=== PATIENT | male | born 1970 | race Caucasian/White ===

== ENCOUNTER → 2016-08-09 | Outpatient (CLI) | payer BC ==
[~2016-08-09] VITALS: Ht 188 cm; Wt 110.6 kg
[~2016-08-09] MED LIST: ASPI81TA28 PO; ATOR-24 PO; MULT-506 PO; OMEG10007 PO
[2016-08-09 16:57] VITALS: BP 149/85; PULSE 90; Ht 188 cm; Wt 110.6 kg
== END | disposition home or self-care (01) ==
LOC: C.NEUR 13:44
PROVIDERS: ATTEND Internal Medicine Pulmonary Disease
DX: G47.30 Sleep apnea, unspecified (principal)

== ENCOUNTER → 2016-08-28 | Outpatient (CLI) | payer BC ==
--- NOTE | 2016-08-29 05:41 | PAP/PSG TECHNICIAN REPORT ---
[facility] Metalizing Machine Operator Polysomnogram Report Study name: None Report date: 08/29/2016 Study date: 08/28/2016 Referring Physician: DR. CONTRERAS Name: LANRE HELLER Interpreting Physician: Bijan Contreras M.D. Date of : 1970 Metalizing Machine Operator: Ravin Alegria [facility]. Sex: Male Age: 46 StudyType: PSG PAP Weight: 243 lbs 16.5 inches Height: 46 years, Height 6' 2" Neck Circum: BMI: 31.2 Medications: ASPIRIN 81 MG, ATORVASTATIN CALCIUM 40 MG, OMEGA 3 Patient History PATIENT HAD A HOME SLEEP STUDY DONE IN IN JUNE OF 2016. HE WAS POSITIVE FOR HEATHER WITH AN AHI 77.8/HR. HE IS HERE TODAY FOR A CPAP TITRATION. ESS = 18 RM 4 Parameters Monitored NPSG: E1-M2, E2-M1, Fp1-M2, Fp2-M1, F3-M2, F4-M2, F4-M1, C3-M2, C4-M2, C4-M1, O1-M2, O2-M2, O2-M1, T3-M2, T4-M1, P3-M2, P4-M1, CHIN1, CHIN2, HR, EKG, Legs, PFLOW, SNOR, FLOW, CFLOW, Tidal Volume, THOR, ABDO, SpO2, PLTH, CPRESS, ETCO2 Wave, ETCO2, pH Sleep Architecture Sleep Stages Time at Lights Off 10:32:02 PM STAGES Time (min.) TST (%) Time at Lights On 5:00:32 AM Wake 118.5 -- Total Recording Time (TRT) 389.50 min. N1 18.0 7 Total Sleep Period (TSP) 296.5 min. N2 91.0 34 Total Sleep Time (TST) 270.0min. N3 101.5 38 Awake Time 119.5 min. REM 59.5 22 Wake after Sleep Onset 96.5 min. Sleep Efficiency (SE) 69 % Sleep Onset Latency (JIMMIE) 22.0 min. Number of Stage 1 Shifts None Awakenings 16 Stage Changes 56 Number of REM periods 4 REM 59.5 22 REM Latency 103.5 min. NREM 210.5 78 Body Position Analysis Supine Right Left Side Prone Vertical Total Sleep Time (min.) 388.5 0.0 0.0 0.00 0.0 0.0 Total Sleep Time (%) 100% 0% 0% 0 0% N/A% Total Sleep Time REM (min.) 59.5 0.0 0.0 None 0.0 0.0 Total Sleep Time NREM (min.) 210.5 0.0 0.0 None 0.0 0.0 Intermittent Wake (min.) 118.5 0.0 0.0 None 0.0 0.0 Total Sleep Period (%) 100% None None None None None Arousals Myoclonus (PLM) * Events Count Index Events Count Index Spontaneous 12 3 Events Awake (PLMW) 112 56.7 Respiratory 7 1.6 Events Asleep w/ Arousal (PLMA) 12 2.7 PLM 11 3 Events Asleep w/o Arousal (PLMS) 172 38.2 Snoring 0 0 Total Asleep 184 40.9 Total 30 7 Total 296 46 Respiratory Analysis * CA OA MA CH H RERA Total Count 0 1 0 0 8 10 9 Index 0.0 0.2 0.0 0 1.8 2 4.2 Mean Duration 0.0 11.7 0.0 0.00 16.0 17.1 16.3 Longest Duration 0.0 11.7 0.0 0.00 0.0 29.0 29.0 Respiratory Event Summary Total Supine ~Supine Right Left Prone REM NREM Apneas Count 1 1 N/A N/A N/A N/A 0 1 Index 0.2 0 N/A N/A N/A N/A 0 0 Hypopneas (4% Desat) Count 8 8 N/A N/A N/A N/A 2 6 Index 1.8 1.8 N/A N/A N/A N/A 2.0 1.7 Apneas & All Hypopneas Count 9 9 N/A N/A N/A N/A 2 7 Index 2.0 2 N/A N/A N/A N/A 2.0 2.0 Respiratory Events (Java Jsf Developer+All Hyp+RERA) Count 9 19 N/A N/A N/A N/A 2 7 Index 4.2 4 N/A N/A N/A N/A 3.0 4.6 Respiratory Related Arousal Count 7 19 N/A N/A N/A N/A 0 7 Index 1.6 2 N/A N/A N/A N/A 0 2 Snoring Analysis Supine Right Left Prone REM NREM Total Snore duration 4.6 min Snores count 182 N/A N/A N/A 33 149 182 Snore mean duration 1.5 Sec Snores index 40 N/A N/A N/A 33.3 42.5 40.4 TST with snoring (%) 1.7% Desaturation Event Summary: Minimum %SpO2 Event Count Mean/Min/Max Duration(sec.) Desaturation Index % Time In Bed > 90 9 27.5 / 8.5 / 51.8 1.4 99.8 86 - 90 0 N/A 0.0 0.2 81 - 85 0 N/A 0.0 0.0 76 - 80 0 N/A 0.0 0.0 71 - 75 0 N/A 0.0 0.0 66 - 70 0 N/A 0.0 0.0 61 - 65 0 N/A 0.0 0.0 56 - 60 0 N/A 0.0 0.0 51 - 55 0 N/A 0.0 0.0 < 50 0 N/A 0.0 0.0 Total REM NREM Awake <50% 0.0 min. 0.0 min. 0.0 min. 0.0 min. 51 - 60% 0.0 min. 0.0 min. 0.0 min. 0.0 min. 61 - 70% 0.0 min. 0.0 min. 0.0 min. 0.0 min. 71 - 80% 0.0 min. 0.0 min. 0.0 min. 0.0 min. 81 - 90% 0.8 min. 0.2 min. 0.4 min. 0.2 min. 91 - 100% 387.6 min. 59.3 min. 210.1 min. 118.1 min. Average 94 94 94 94 Minimum SpO2 89 90 89 90 Desaturation Event Index 1.4 2.0 2.0 0.0 # Desat. Events below 89% N/A N/A N/A N/A Time(%) with Saturation below 89% 0.0 0.0 0.0 0.0 Time(min.) with Saturation below 89% 0.0 0.0 0.0 0.0 Time (mins) REM (mins) NREM (mins) % of TST SpO2 Below 90% 5 1 N4 0.0 SpO2 Below 88% 0 0 0 0 Heart Rate Analysis Min (bpm) Max (bpm) Average (bpm) Awake 54 80 62 NREM 50 69 58 REM 52 72 59 Overall 50 72 59 Supplemental O2 Values Minimum O2 level: None Value Start Time End Time Metalizing Machine Operator Comments Mr. Heller slept in the supine position. PVC's noted. Leg movements noted. No bruxism noted. CPAP was initiated at +4 CMH2O and up-titrated to an optimal level of +9 CMH2O, which nearly eliminated all respiratory events and snoring. A Lem[employer] Eson 2 nasal mask size medium was used during titration Mr. Heller awoke to use the restroom 0 times during the night. Mr. Heller stated I slept as well as I do when I am in my own bed. The final report will be interpreted and signed by a sleep physician. The completed physician report will then be placed in the patient medical record. Therapy Event: Therapy (cm H20) 4 6 7 8 9 Total Time at Pressure (min.) 57.7 33.2 63.3 63.3 171.0 TST at Pressure (min.) 24.7 22.7 60.8 62.8 99.0 # Periods 1 1 1 1 1 Sleep Onset (min.) 22.0 0.0 0.0 0.0 0.0 REM Onset (min.) N/A N/A 34.6 50.8 0.0 Sleep Efficiency % 42 68 96 99 57 Wakefulness (%) 57.2 31.6 3.9 0.8 42.1 Wakefulness (min.) 33.0 10.5 2.5 0.5 72.0 NREM 1 (%) 19.1 4.5 5.5 0.8 0.9 NREM 1 (min.) 11.0 1.5 3.5 0.5 1.5 NREM 2 (%) 23.8 62.6 23.3 20.2 17.0 NREM 2 (min.) 13.7 20.8 14.7 12.8 29.0 NREM 3 (%) 0.0 1.3 52.2 61.6 17.0 NREM 3 (min.) 0.0 0.4 33.1 39.0 29.0 REM (%) 0.0 0.0 15.0 16.6 23.1 REM (min.) 0.0 0.0 9.5 10.5 39.5 # Arousals 7 6 11 2 4 Arousal Index 17.0 15.9 10.9 1.9 2.4 # Snore 2 113 26 18 23 Snore Index 4.9 298.8 25.6 17.2 13.9 AHI 17.0 0.0 0.0 1.9 0.0 AHI Supine 17.0 0.0 0.0 1.9 0.0 AHI Non-Supine N/A N/A N/A N/A N/A NREM AHI 17.0 0.0 0.0 0.0 0.0 REM AHI N/A N/A 0.0 11.4 0.0 RDI 24.3 5.3 3.0 1.9 1.2 # Obstructive 1 0 0 0 0 # Central Ap 0 0 0 0 0 # Mixed 0 0 0 0 0 # Hypopneas 6 0 0 2 0 RERAS 3 2 3 0 2 Total Respiratory Events 10 2 3 2 2 Time Below SpO2 89.00% (min.) 0.0 0.0 0.0 0.0 0.0 Mean NREM SpO2 (%) 93 93 94 94 94 Mean REM SpO2 (%) N/A N/A 94 93 94 Mean Sleep SpO2 (%) 93 93 94 94 94 Min NREM SpO2 (%) 89 91 91 91 92 Min REM SpO2 (%) N/A N/A 92 90 92 Position Supine (min.) 24.7 22.7 60.8 62.8 99.0 Position Non-supine (min.) 0.0 0.0 0.0 0.0 0.0 LM Index Sleep 43.7 87.3 97.7 29.6 1.8 LM Index NREM 43.7 87.3 108.7 35.6 3.0 LM Index REM N/A N/A 37.9 0.0 0.0 Mean Heart Rate (bpm) 62 59 60 58 58 Min Heart Rate (bpm) 54 54 52 53 50
--- NOTE | 2016-08-30 15:36 | Sleep Study ---
Sleep Study Report Date of Service: August 28, 2016 Sleep Study Report Clinical data: The patient is a 46-year-old male with a BMI of 31 referred for a CPAP titration study. He had a home sleep apnea test performed earlier this year which showed severe sleep apnea with an AHI of 77.8. His [place] sleepiness score is significantly elevated at 18/24. Sleep architecture: Total sleep time was 270 minutes including 210.5 minutes of non-REM sleep and 59.5 minutes of REM sleep. Sleep onset latency was 22 minutes. REM latency was 103.5 minutes. Sleep efficiency was 69%. Wake after sleep onset was 96.5 minutes. Sleep consisted of stage N1 7%, stage N2 34 %, stage N3 38%, and REM 22%. Arousal data: 30 arousals were recorded for an index of 7 per hour PLM data: 184 limb movements during sleep were noted for an index of 40.9 per hour with an arousal index of 2.7 per hour. Respiratory data: The AHI was 2. There was 1 obstructive apneic episode, 11.7 seconds in duration. There were 8 hypopneas episodes. The mean duration of hypopnea was 16 seconds. Oximetry data: No hypoxemia was seen. Oxygen anny was 89%. Mean saturation was 94%. EKG: Heart rates ranged from 50 to 72 beats per minute. PVCs were noted. Cash Clerk's comments and treatment summary: The patient slept supine. He used a nasal mask. CPAP was titrated to 9 cm water pressure. At his final pressure setting he slept for 99 minutes with an AHI of 0 Impression: 46-year-old male with severe sleep apnea corrected with CPAP 9 cm water pressure. Recommendations: The patient will be started on the above-noted treatment regimen and seen back in follow-up within 90 days to document efficacy and compliance. Copies To 1: Anders Bob MD
== END | disposition home or self-care (01) ==
LOC: C.NEUR 20:00
PROVIDERS: ATTEND Internal Medicine Pulmonary Disease
DX: G47.30 Sleep apnea, unspecified (principal)

== ENCOUNTER → 2016-08-30 | Outpatient (CLI) | payer BC ==
[~2016-08-30] VITALS: Ht 188 cm; Wt 111.8 kg
[2016-08-30 15:18] VITALS: BP 138/91; PULSE 102; Ht 188 cm; Wt 111.8 kg
== END | disposition home or self-care (01) ==
LOC: C.NEUR 13:35
PROVIDERS: ATTEND Internal Medicine Pulmonary Disease
DX: G47.30 Sleep apnea, unspecified (principal)

== ENCOUNTER 2016-10-08 14:57 | Emergency (ER) | payer BC ==
[~2016-10-08] VITALS: Ht 188 cm; Wt 109.9 kg
[2016-10-08 14:59] VITALS: TEMP 36.9
[2016-10-08] MEDS ORDERED: NITROGLYCERIN 0.4 MG SL PER TAB CHARGE SL STA (15:25)
[2016-10-08 15:27] LABS: BASO % 0.3 %; BASO ABS # 0.02 K/uL (0-0.2); COMPLETE YES; EOS % 1.5 %; HEMATOCRIT 41.7 % (42-52); IG% 0.2 %; LYMPH % 30.9 %; LYMPH ABS # 1.85 K/uL (1.2-3.4); MEAN CELL VOLUME 86.9 fL (80-100); MEAN CORPUSCULAR HEMOGLOBIN 28.3 pg (25-34); MEAN CORPUSCULAR HGB CONC 32.6 g/dl (32-36); MEAN PLATELET VOLUME 9.8 fL (7.4-10.4); MONO % 13.9 %; NEUT % 53.2 %; PLATELET COUNT 250 K/uL (130-400); WHITE BLOOD COUNT 5.98 K/uL (4.8-10.8)
[2016-10-08] MEDS ORDERED: MULT-506 PO (15:31)
[2016-10-08] MEDS ORDERED: OMEG10007 PO (15:31)
[2016-10-08] MEDS ORDERED: ASPI81TA28 PO (15:31)
[2016-10-08] MEDS ORDERED: ATOR-24 PO (15:31)
[2016-10-08 15:37] LABS: PARTIAL THROMBOPLASTIN RATIO 1.3; PROTHROMBIN TIME (PATIENT) 10.7 SECONDS (9.0-12.0)
[2016-10-08 15:44] LABS: ALT/SGPT 33 U/L (12-78); AST/SGOT 12 U/L (15-37); BLOOD UREA NITROGEN 21 mg/dl (7-18); BUN/CREATININE RATIO 17.6 (10-20); CALCIUM 8.5 mg/dl (8.5-10.1); CARBON DIOXIDE 26 mmol/L (21-32); CHLORIDE 107 mmol/L (98-107); GLUCOSE 139 mg/dl (70-99); MAGNESIUM 2.2 mg/dl (1.8-2.4); POTASSIUM 3.5 mmol/L (3.5-5.1); SODIUM 139 mmol/L (136-145)
[2016-10-08 15:47] LABS: ALKALINE PHOSPHATASE 82 U/L (45-117); PHOSPHORUS 2.5 mg/dl (2.5-4.9)
--- NOTE | 2016-10-08 16:02 | DIAGNOSTIC IMAGING REPORT ---
CHEST ONE VIEW PORTABLE HISTORY: 46 years-old Male CHEST PAIN COMPARISON: None available TECHNIQUE: Portable upright AP view of the chest FINDINGS: Cardiomediastinal and hilar silhouettes are within normal limits. No pneumothorax, pleural effusion or overt pulmonary edema is seen. There is a hazy alveolar opacity left lung base. The bones are grossly intact. IMPRESSION: Hazy alveolar opacity of the left lung base is suspicious for pneumonia in the appropriate clinical setting. Atelectasis could have a similar appearance. The above report was generated using voice recognition software. It may contain grammatical, syntax or spelling errors. Electronically signed by: Erasmo Cortez M.D. 10/08/2016 4:01 PM Dictated Date/Time: 10/08/2016 3:59 PM
--- NOTE | 2016-10-08 16:10 | EMERGENCY ROOM VISIT NOTE ---
History Report prepared by Ge: Corinne Olson Under the Supervision of: Dr. Todd Neri M.D. First contact with patient: 15:10 Chief Complaint: CHEST PAIN Stated Complaint: CHEST PAIN History of Present Illness The patient is a 46 year old male who presents to the Emergency Room with complaints of intermittent chest pain starting this afternoon. He states that it started in his shoulders and both arms a few weeks ago, but he assumed it was from working out. He states that today he was walking upstairs when he noticed the pain moved into his chest. He states that his chest felt tight and like there was a pressure being applied. He states that sitting made it seem to pass. He reports that he got the pain again when he walked to his car. He states that he felt the need to lie down. Currently he states that his chest pain feels heavy. The patient reports that the pain is worse when he walks. He notes each episode lasted a few minutes. The patient complains of shortness of breath, nausea, and recent travel. The patient denies leg swelling, fever, chills, recent trauma, tobacco use, and drug use. The patient notes a history of high cholesterol. He states that his brother in his mid 30s from cardiac issues. He notes that his father had a bypass and pacemaker placed in his early 50s. He notes he usually takes an Aspirin daily, but didn't today. Source of History: patient Onset: this afternoon Position: chest Quality: pressure, other (tightness, heaviness) Timing: intermittent Modifying Factors (Worsening): other (walking) Associated Symptoms: + SOB, + nausea, No fevers, No chills Note: The patient complains that the pain radiates in his shoulders and arms. The patient denies leg swelling, recent trauma, tobacco use, and drug use. Review of Systems See HPI for pertinent positives and negatives. A total of ten systems were reviewed and were otherwise negative. Past Medical & Surgical Medical Problems: (1) High cholesterol Family History FH: heart disease FHx: coronary artery bypass surgery Social History Smoking Status: Never Smoker Smokeless Tobacco Use: No Alcohol Use: occasionally Drug Use: none Current/Historical Medications Scheduled Aspirin (Aspirin Ec), 81 MG PO DAILY Atorvastatin (Lipitor), 40 MG PO QPM Fish Oil ([place]-3), 1 CAP PO QAM Multivitamin (Multivitamin), 1 TAB PO DAILY Allergies Coded Allergies: Penicillins (Verified Allergy, Unknown, UNKNOWN-HAPPENED A CHILD, ) Physical Exam Vital Signs Date Time Temp Pulse Resp B/P (MAP) Pulse Ox O2 Delivery O2 Flow Rate FiO2 10/08/16 15:57 94 18 150/73 98 Room Air 10/08/16 15:38 95 18 161/100 10/08/16 15:22 86 10/08/16 14:59 36.9 103 18 156/95 97 Room Air Physical Exam GENERAL: Awake, alert, well-appearing, NAD HENT: Normocephalic, atraumatic. EYES: Normal conjunctiva. Sclera non-icteric. NECK: Supple. No nuchal rigidity. FROM. RESPIRATORY: CTAB, no rhonchi, wheezing, crackles CARDIAC: Tachycardic rate, regular rhythm, no MRG ABDOMEN: Soft, NTND, BS+ MSK: No chest wall TTP, no LE edema. Erythema to anterior shins bilaterally consistent with his sunburn. NEURO: GCS 15, CN 2-12 intact, moves all 4s on command SKIN: No rash or jaundice noted. Medical Decision & Procedures ER Provider Diagnostic Interpretation: Radiology results as stated below per my review and radiologist interpretation: CHEST ONE VIEW PORTABLE HISTORY: 46 years-old Male CHEST PAIN COMPARISON: None available TECHNIQUE: Portable upright AP view of the chest FINDINGS: Cardiomediastinal and hilar silhouettes are within normal limits. No pneumothorax, pleural effusion or overt pulmonary edema is seen. There is a hazy alveolar opacity left lung base. The bones are grossly intact. IMPRESSION: Hazy alveolar opacity of the left lung base is suspicious for pneumonia in the appropriate clinical setting. Atelectasis could have a similar appearance. The above report was generated using voice recognition software. It may contain grammatical, syntax or spelling errors. Electronically signed by: Erasmo Cortez M.D. 10/08/2016 4:01 PM Dictated Date/Time: 10/08/2016 3:59 PM Laboratory Results 10/08/16 15:20 Red Blood Count 4.80, Mean Corpuscular Volume 86.9, Mean Corpuscular Hemoglobin 28.3, Mean Corpuscular Hemoglobin Concent 32.6, Mean Platelet Volume 9.8, Neutrophils (%) (Auto) 53.2, Lymphocytes (%) (Auto) 30.9, Monocytes (%) (Auto) 13.9, Eosinophils (%) (Auto) 1.5, Basophils (%) (Auto) 0.3, Neutrophils # (Auto ) 3.18, Lymphocytes # (Auto) 1.85, Monocytes # (Auto) 0.83, Eosinophils # (Auto ) 0.09, Basophils # (Auto) 0.02 10/08/16 15:20 Test 10/08/16 15:11 10/08/16 15:20 Creatine Kinase MB Ratio (0-3.0) White Blood Count 5.98 K/uL (4.8-10.8) Red Blood Count 4.80 M/uL (4.7-6.1) Hemoglobin 13.6 g/dL (14.0-18.0) Hematocrit 41.7 % (42-52) Mean Corpuscular Volume 86.9 fL (80-100) Mean Corpuscular Hemoglobin 28.3 pg (25-34) Mean Corpuscular Hemoglobin Concent 32.6 g/dl (32-36) Platelet Count 250 K/uL (130-400) Mean Platelet Volume 9.8 fL (7.4-10.4) Neutrophils (%) (Auto) 53.2 % Lymphocytes (%) (Auto) 30.9 % Monocytes (%) (Auto) 13.9 % Eosinophils (%) (Auto) 1.5 % Basophils (%) (Auto) 0.3 % Neutrophils # (Auto) 3.18 K/uL (1.4-6.5) Lymphocytes # (Auto) 1.85 K/uL (1.2-3.4) Monocytes # (Auto) 0.83 K/uL (0.11-0.59) Eosinophils # (Auto) 0.09 K/uL (0-0.5) Basophils # (Auto) 0.02 K/uL (0-0.2) RDW Standard Deviation 42.3 fL (36.4-46.3) RDW Coefficient of Variation 13.1 % (11.5-14.5) Immature Granulocyte % (Auto) 0.2 % Immature Granulocyte # (Auto) 0.01 K/uL (0.00-0.02) Prothrombin Time 10.7 SECONDS (9.0-12.0) Prothromb Time International Ratio 1.0 (0.9-1.1) Activated Partial Thromboplast Time 32.9 SECONDS (21.0-31.0) Partial Thromboplastin Ratio 1.3 Anion Gap 6.0 mmol/L (3-11) Est Creatinine Clear Calc Drug Dose 100.4 ml/min Estimated GFR () 83.0 Estimated GFR (Non- 71.6 BUN/Creatinine Ratio 17.6 (10-20) Calcium Level 8.5 mg/dl (8.5-10.1) Phosphorus Level 2.5 mg/dl (2.5-4.9) Magnesium Level 2.2 mg/dl (1.8-2.4) Total Bilirubin 0.7 mg/dl (0.2-1) Direct Bilirubin 0.2 mg/dl (0-0.2) Aspartate Amino Transf (AST/SGOT) 12 U/L (15-37) Alanine Aminotransferase (ALT/SGPT) 33 U/L (12-78) Alkaline Phosphatase 82 U/L (45-117) Creatine Kinase MB 1.2 ng/ml (0.5-3.6) Troponin I 0.028 ng/ml (0-0.045) Total Protein 7.5 gm/dl (6.4-8.2) Albumin 3.9 gm/dl (3.4-5.0) Lipase 111 U/L (73-393) Laboratory results reviewed by me Medications Administered Medications (Trade) Dose Ordered Sig/Patrizia Route Start Time Stop Time Status Last Admin Dose Admin Nitroglycerin (Nitrostat Tab) 0.4 mg ONE STAT SL 10/08/16 15:25 10/08/16 15:27 DC 10/08/16 15:38 0.4 MG ECG Indication: chest pain Rate (beats per minute): 100 Rhythm: sinus tachycardia Findings: ST depression (Inferior and Lateral), other (normal NM and QRS intervals, mild elevation of aVR in V1, no TWI, abnormal) Comparison ECG Date: Change: Normal sinus rhythm with a rate of 84, normal PRT QRS QTC, no STS change or TWI , Questionable TWI in lead 3. ED Course 1513: The patient was evaluated in room C6. A complete history and physical exam was performed. 1525: Ordered Nitroglycerin 0.4 mg SL. 1636: Discussed the patient's case with Dr. Vanegas. 1644: Discussed the patient's case with Dr. Wheeler. The patient will be evaluated for further treatment and disposition. Medical Decision The patient is a 46 year old male who presents to the Emergency Room with complaints of intermittent chest pain starting this afternoon. The patient has a history of high cholesterol. Differential diagnoses include ACS, MSK pain, atypical chest pain, PE, PNA. Patient had a workup for chest pain which was concerning given his family history in addition to his own history of dyspnea on exertion. Patient was given aspirin in addition to nitroglycerin. Upon reevaluation patient stated nitroglycerin did not really improve his discomfort but did not have any true chest pain. Patient was less likely PE given the history. Patient's EKG concerning for diffuse ST depressions inferior and laterally as well as high lateral leads. Mild elevation in aVR and questioning the V1 also noted. Patient had a negative troponin at this time so was not in an NSTEMI. I spoke with the parking meter installer as he would be admitted continued monitoring and may benefit from a catheterization at some point. I also spoke with the hospitalist who agreed the patient would benefit from further evaluation. Patient did have a repeat EKG which showed there is ST changes resolved. The hospitalist stated he would likely start him on heparin as there is concern for ACS. Consults Time Called: 1632 Consulting Physician: Dr. Vanegas- Cardiology [facility] [place] Returned Call: [phone] Discussed the patient's case with Dr. Vanegas. Additional Consults: Time Called: 1640 Consulted Physician: Dr. Wheeler Returned Call: [phone] Additional Comments: Discussed the patient's case with Dr. Wheeler. The patient will be evaluated for further treatment and disposition. Impression Primary Impression: Abnormal EKG Additional Impressions: Atypical chest pain HTN (hypertension) Hyperglycemia Critical Care I have personally spent greater than 38 minutes of critical care time in the direct management of this patient. This includes bedside care, interpretation of diagnostic studies, and testing, discussion with consultants, patient, and family members, and other required patient management activities. This [] minutes is in excess of all separately billable procedures. Scribe Attestation The scribe's documentation has been prepared under my direction and personally reviewed by me in its entirety. I confirm that the note above accurately reflects all work, treatment, procedures, and medical decision making performed by me. Departure Information Dispostion Being Evaluated By Hospitalist Referrals Leandro Hebert Jr,D.O. (PCP) Patient Instructions My [facility] Problem Qualifiers
[2016-10-08] MEDS ORDERED: ZOLPIDEM TARTRATE 5 MG TAB PO PRN (17:45)
[2016-10-08] MEDS ORDERED: MoRPHine SULFATE 2 MG/ML CARP IV PRN (17:45)
[2016-10-08] MEDS ORDERED: ONDANSETRON INJ 2 MG/ML 2 ML VIAL IV PRN (17:45)
[2016-10-08] MEDS ORDERED: ACETAMINOPHEN 325 MG TAB PO PRN (17:45)
[2016-10-08] MEDS ORDERED: NITROGLYCERIN 0.4 MG SL PER TAB CHARGE SL PRN (17:45)
[2016-10-08] MEDS ORDERED: POLYETHYLENE (MIRALAX) 17 GM PACK PO PRN (17:45)
[2016-10-08] MEDS ORDERED: MAGNESIUM HYDROXIDE SUSP 30 ML UDC PO PRN (17:45)
[2016-10-08] MEDS ORDERED: ALUMINUM/MAGNESIUM/SIMETH (MAALOX MAX) 30 ML UDC PO PRN (17:45)
[2016-10-08] MEDS ORDERED: IV FLUIDS COMPLETED PRN (18:00)
--- NOTE | 2016-10-08 18:06 | History and Physical ---
History & Physical Date & Time of Service: Oct 08, 2016 at 17:46 Chief Complaint: Chest Pain Primary Care Physician: Leandro Hebert Jr,D.O. History of Present Illness Source: patient Past Medical/Surgical History 46 y/o M Hx HPL with strong family history of CAD. Was walking today when he developed central chest pain and SOB. This recurred later in the day, again when ambulating, and persisted. His pain improved with NTG in the ER. Initial EKG was abnormal showing lateral and post depressions in addition to borderline ant elevations. With improvement of his pain, his EKG normalized. He describes some nausea which he thought was unrelated and denies diaphoresis. The Pt follows up with a manager code and recently had his statin dose increased. He had a normal stress test 10 years prior and has not had one since. Family History FH: heart disease FHx: coronary artery bypass surgery Social History Smoking Status: Never Smoker Smokeless Tobacco Use: No Drug Use: none Immunizations History of Tetanus Vaccine?: Unknown History of Pneumococcal: No History of Hepatitis B Vaccine: Unknown Multi-Drug Resistant Organisms History of MDRO: No Allergies Coded Allergies: Penicillins (Verified Allergy, Unknown, UNKNOWN-HAPPENED A CHILD, ) Home Medications Scheduled Aspirin (Aspirin Ec), 81 MG PO DAILY Atorvastatin (Lipitor), 40 MG PO QPM Fish Oil ([place]-3), 1 CAP PO QAM Multivitamin (Multivitamin), 1 TAB PO DAILY Physical Exam Vital Signs Date Time Temp Pulse Resp B/P (MAP) Pulse Ox O2 Delivery O2 Flow Rate FiO2 10/08/16 15:57 94 18 150/73 98 Room Air 10/08/16 15:38 95 18 161/100 10/08/16 15:22 86 10/08/16 14:59 36.9 103 18 156/95 97 Room Air General Appearance: WD/WN, no apparent distress Head: normocephalic Eyes: normal inspection, EOMI ENT: normal ENT inspection, pharynx normal Neck: supple, no JVD Respiratory/Chest: chest non-tender, lungs clear, normal breath sounds Cardiovascular: regular rate, rhythm, no edema, no gallop, no JVD, no murmur, normal peripheral pulses Abdomen/GI: normal bowel sounds, non tender, soft Extremities/Musculoskelatal: normal inspection, no calf tenderness, normal capillary refill, no pedal edema, normal range of motion 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, no motor/sensory deficits, alert, normal mood/affect, normal reflexes, oriented x 3 Skin: normal color, warm/dry, no rash Diagnostics Laboratory Results Results Past 24 Hours Test 10/08/16 15:11 10/08/16 15:20 Range/Units Creatine Kinase MB Ratio 0-3.0 White Blood Count 5.98 4.8-10.8 K/uL Red Blood Count 4.80 4.7-6.1 M/uL Hemoglobin 13.6 14.0-18.0 g/dL Hematocrit 41.7 42-52 % Mean Corpuscular Volume 86.9 80-100 fL Mean Corpuscular Hemoglobin 28.3 25-34 pg Mean Corpuscular Hemoglobin Concent 32.6 32-36 g/dl Platelet Count 250 130-400 K/uL Mean Platelet Volume 9.8 7.4-10.4 fL Neutrophils (%) (Auto) 53.2 % Lymphocytes (%) (Auto) 30.9 % Monocytes (%) (Auto) 13.9 % Eosinophils (%) (Auto) 1.5 % Basophils (%) (Auto) 0.3 % Neutrophils # (Auto) 3.18 1.4-6.5 K/uL Lymphocytes # (Auto) 1.85 1.2-3.4 K/uL Monocytes # (Auto) 0.83 0.11-0.59 K/uL Eosinophils # (Auto) 0.09 0-0.5 K/uL Basophils # (Auto) 0.02 0-0.2 K/uL RDW Standard Deviation 42.3 36.4-46.3 fL RDW Coefficient of Variation 13.1 11.5-14.5 % Immature Granulocyte % (Auto) 0.2 % Immature Granulocyte # (Auto) 0.01 0.00-0.02 K/uL Prothrombin Time 10.7 9.0-12.0 SECONDS Prothromb Time International Ratio 1.0 0.9-1.1 Activated Partial Thromboplast Time 32.9 21.0-31.0 SECONDS Partial Thromboplastin Ratio 1.3 Sodium Level 139 136-145 mmol/L Potassium Level 3.5 3.5-5.1 mmol/L Chloride Level 107 98-107 mmol/L Carbon Dioxide Level 26 21-32 mmol/L Anion Gap 6.0 3-11 mmol/L Blood Urea Nitrogen 21 7-18 mg/dl Creatinine 1.20 0.60-1.40 mg/dl Est Creatinine Clear Calc Drug Dose 100.4 ml/min Estimated GFR () 83.0 Estimated GFR (Non- 71.6 BUN/Creatinine Ratio 17.6 10-20 Random Glucose 139 70-99 mg/dl Calcium Level 8.5 8.5-10.1 mg/dl Phosphorus Level 2.5 2.5-4.9 mg/dl Magnesium Level 2.2 1.8-2.4 mg/dl Total Bilirubin 0.7 0.2-1 mg/dl Direct Bilirubin 0.2 0-0.2 mg/dl Aspartate Amino Transf (AST/SGOT) 12 15-37 U/L Alanine Aminotransferase (ALT/SGPT) 33 12-78 U/L Alkaline Phosphatase 82 45-117 U/L Creatine Kinase MB 1.2 0.5-3.6 ng/ml Troponin I 0.028 0-0.045 ng/ml Total Protein 7.5 6.4-8.2 gm/dl Albumin 3.9 3.4-5.0 gm/dl Lipase 111 73-393 U/L CXR normal EKG NSR - depressions present in lat leads - borderline ant elevation - resolved following NTG Impression Assessment and Plan 46 y/o M Hx HPL with strong family history of CAD. Was walking today when he developed central chest pain and SOB. This recurred later in the day, again when ambulating, and persisted. His pain improved with NTG in the ER. Initial EKG was abnormal showing lateral and post depressions in addition to borderline ant elevations. With improvement of his pain, his EKG normalized. He describes some nausea which he thought was unrelated and denies diaphoresis. The Pt follows up with a manager code and recently had his statin dose increased. He had a normal stress test 10 years prior and has not had one since. 1) CP - Due to EKG changes, cardiology will be contacted. He has been placed on full-dose Heparin, high dose statin, ASA, NTG and PRN Morphine. He will be assigned to telemetry. serial enzymes ordered. 2) HPL - Statin dose increased. Ful code - Full dose Heparin Total time for this admit including review of labs, meds, EKG, imaging - discussion with pt, cardiology and ER attending 37 min Following discussion with the manager code it was felt that the pt should be transferred - this is based on his risk, symptoms, initial EKG and lack of access to the lab technician at present due to additional pts This was discussed i detail with the ER attending and Pt Level of Care Telemetry Resuscitation Status FULL RESUSCITATION VTE Prophylaxis VTE Risk Assessment Done? Y/N: Yes Risk Level: Low Given or contraindicated: Other Anticoagulation
[2016-10-08] MEDS ORDERED: NITROGLYCERIN OINT 2% 1GM PACKET EXT SCH (18:15)
[2016-10-08 18:29] VITALS: Ht 188 cm; Wt 109.9 kg
[2016-10-08] MEDS ORDERED: LORAZEPAM 2 MG/ML 1 ML VIAL IV STA (19:45)
[2016-10-08] MEDS ORDERED: HEPARIN 25000 UNIT/500 ML D5W ONE (19:53)
[2016-10-08] MEDS ORDERED: NITROGLYCERIN/D5W 100 MCG/ML 250 ML IV SCH (20:00)
--- NOTE | 2016-10-08 20:06 | EMERGENCY ROOM VISIT NOTE ---
ED Visit Note Received patient in signout from Dr. Neri. History and physical verified by me. This patient was discussed with both the hospitalist as well as the solar sales associate. There are concerns with the patient's evolving EKG that the patient needs a cardiac Medical Scientist. Unfortunately this will not be available here [facility] for 5-6 hours and due to the patient's insurance it was felt that a transfer to a tertiary care center such as [facility] would be in the patient's best interest. The patient's insurance favors [facility] therefore the case was discussed with Dr. Morales at [facility]. He agrees to accept the patient. Due to the unstable nature of the patient's pain I'm going to transfer the patient via [facility]. A repeat EKG shows that the ST depressions returned. The patient also has ST elevations in V1. The patient will be placed on a heparin drip here in the emergency department along with a nitro drip. Current/Historical Medications Scheduled Aspirin (Aspirin Ec), 81 MG PO DAILY Atorvastatin (Lipitor), 40 MG PO QPM Fish Oil ([place]-3), 1 CAP PO QAM Multivitamin (Multivitamin), 1 TAB PO DAILY Allergies Coded Allergies: Penicillins (Verified Allergy, Unknown, UNKNOWN-HAPPENED A CHILD, ) Vital Signs Date Time Temp Pulse Resp B/P (MAP) Pulse Ox O2 Delivery O2 Flow Rate FiO2 10/08/16 18:48 90 20 147/81 98 Room Air 10/08/16 18:29 Room Air 10/08/16 15:57 94 18 150/73 98 Room Air 10/08/16 15:38 95 18 161/100 10/08/16 15:22 86 10/08/16 14:59 36.9 103 18 156/95 97 Room Air Laboratory Results 10/08/16 15:20 Red Blood Count 4.80, Mean Corpuscular Volume 86.9, Mean Corpuscular Hemoglobin 28.3, Mean Corpuscular Hemoglobin Concent 32.6, Mean Platelet Volume 9.8, Neutrophils (%) (Auto) 53.2, Lymphocytes (%) (Auto) 30.9, Monocytes (%) (Auto) 13.9, Eosinophils (%) (Auto) 1.5, Basophils (%) (Auto) 0.3, Neutrophils # (Auto ) 3.18, Lymphocytes # (Auto) 1.85, Monocytes # (Auto) 0.83, Eosinophils # (Auto ) 0.09, Basophils # (Auto) 0.02 10/08/16 15:20 Test 10/08/16 15:11 10/08/16 15:20 10/08/16 19:13 Creatine Kinase MB Ratio (0-3.0) White Blood Count 5.98 K/uL (4.8-10.8) Red Blood Count 4.80 M/uL (4.7-6.1) Hemoglobin 13.6 g/dL (14.0-18.0) Hematocrit 41.7 % (42-52) Mean Corpuscular Volume 86.9 fL (80-100) Mean Corpuscular Hemoglobin 28.3 pg (25-34) Mean Corpuscular Hemoglobin Concent 32.6 g/dl (32-36) Platelet Count 250 K/uL (130-400) Mean Platelet Volume 9.8 fL (7.4-10.4) Neutrophils (%) (Auto) 53.2 % Lymphocytes (%) (Auto) 30.9 % Monocytes (%) (Auto) 13.9 % Eosinophils (%) (Auto) 1.5 % Basophils (%) (Auto) 0.3 % Neutrophils # (Auto) 3.18 K/uL (1.4-6.5) Lymphocytes # (Auto) 1.85 K/uL (1.2-3.4) Monocytes # (Auto) 0.83 K/uL (0.11-0.59) Eosinophils # (Auto) 0.09 K/uL (0-0.5) Basophils # (Auto) 0.02 K/uL (0-0.2) RDW Standard Deviation 42.3 fL (36.4-46.3) RDW Coefficient of Variation 13.1 % (11.5-14.5) Immature Granulocyte % (Auto) 0.2 % Immature Granulocyte # (Auto) 0.01 K/uL (0.00-0.02) Prothrombin Time 10.7 SECONDS (9.0-12.0) Prothromb Time International Ratio 1.0 (0.9-1.1) Activated Partial Thromboplast Time 32.9 SECONDS (21.0-31.0) Partial Thromboplastin Ratio 1.3 Anion Gap 6.0 mmol/L (3-11) Est Creatinine Clear Calc Drug Dose 100.4 ml/min Estimated GFR () 83.0 Estimated GFR (Non- 71.6 BUN/Creatinine Ratio 17.6 (10-20) Calcium Level 8.5 mg/dl (8.5-10.1) Phosphorus Level 2.5 mg/dl (2.5-4.9) Magnesium Level 2.2 mg/dl (1.8-2.4) Total Bilirubin 0.7 mg/dl (0.2-1) Direct Bilirubin 0.2 mg/dl (0-0.2) Aspartate Amino Transf (AST/SGOT) 12 U/L (15-37) Alanine Aminotransferase (ALT/SGPT) 33 U/L (12-78) Alkaline Phosphatase 82 U/L (45-117) Creatine Kinase MB 1.2 ng/ml (0.5-3.6) Total Protein 7.5 gm/dl (6.4-8.2) Albumin 3.9 gm/dl (3.4-5.0) Lipase 111 U/L (73-393) Medications Administered Medications (Trade) Dose Ordered Sig/Patrizia Route Start Time Stop Time Status Last Admin Dose Admin Nitroglycerin (Nitrostat Tab) 0.4 mg ONE STAT SL 10/08/16 15:25 10/08/16 15:27 DC 10/08/16 15:38 0.4 MG Departure Information Impression Primary Impression: Abnormal EKG Additional Impressions: HTN (hypertension) Hyperglycemia Atypical chest pain Dispostion Being Evaluated By Hospitalist Referrals Leandro Hebert Jr,D.O. (PCP) Patient Instructions [facility] Problem Qualifiers
[2016-10-08] MEDS ORDERED: METOPROLOL TARTRATE 1 MG/ML VIAL ONE (20:12)
[2016-10-08] MEDS ORDERED: NITROGLYCERIN/D5W 100 MCG/ML BTL ONE (20:12)
[2016-10-08] MEDS ORDERED: HEPARIN SOD 5000 UNIT/0.5 ML CARP ONE ×2 (20:15)
[2016-10-08 20:30] VITALS: PULSE 109
[2016-10-08 20:37] VITALS: BP 134/87; O2SAT 97
[2016-10-08] MEDS ORDERED: HEPARIN 25,000 UNIT/500ML D5W 500 ML IV PRN (21:00)
[2016-10-08] MEDS ORDERED: ATORVASTATIN 40 MG TAB PO SCH (21:00)
[2016-10-08] MEDS ORDERED: METOPROLOL TARTRATE 1 MG/ML VIAL IV STA (21:24)
[2016-10-09] MEDS ORDERED: ASPIRIN 81 MG ECTAB PO SCH (09:00)
== END 2016-10-08 20:59 | disposition short-term general hospital (02) ==
LOC: C.EDB 14:58 → CANRESERV 18:21 → ENRESERV 18:21 → C.ED 20:59 → CANBEDREQ 21:51
DX: R94.31 Abnormal electrocardiogram [ECG] [EKG] (principal); R07.89 Other chest pain; I10 Essential (primary) hypertension; R73.9 Hyperglycemia, unspecified; E78.00 Pure hypercholesterolemia, unspecified; Z82.49 Family history of ischemic heart disease and other diseases of the circulatory system; Z79.82 Long term (current) use of aspirin; Z79.899 Other long term (current) drug therapy

== ENCOUNTER → 2016-11-01 | Outpatient (CLI) | payer BC ==
[~2016-11-01] VITALS: Ht 188 cm; Wt 106.2 kg
[2016-11-01 14:23] VITALS: BP 128/74; PULSE 63; Ht 188 cm; Wt 106.2 kg
== END ==
LOC: C.NEUR 14:06
PROVIDERS: ATTEND Internal Medicine Pulmonary Disease
DX: G47.30 Sleep apnea, unspecified (principal)

== ENCOUNTER → 2017-01-22 | Outpatient (CLI) | payer BC ==
[2017-01-22 15:46] LABS: ALT/SGPT 37 U/L (12-78); BLOOD UREA NITROGEN 25 mg/dl (7-18); CALCIUM 9.1 mg/dl (8.5-10.1); CARBON DIOXIDE 28 mmol/L (21-32); CHLORIDE 105 mmol/L (98-107); CHOLESTEROL 98 mg/dl (0-200); CREATININE 1.02 mg/dl (0.60-1.40); GLUCOSE 96 mg/dl (70-99); POTASSIUM 4.3 mmol/L (3.5-5.1); SODIUM 138 mmol/L (136-145); TRIGLYCERIDES 43 mg/dl (0-150); VERY LOW DENSITY LIPOPROT CALC 9 mg/dl
[2017-01-22 15:49] LABS: ALB/GLOB RATIO 1.2 (0.9-2); ALKALINE PHOSPHATASE 90 U/L (45-117); AST/SGOT 11 U/L (15-37); CHOLESTEROL/HDL RATIO 3.3; HDL CHOLESTEROL 30 mg/dl; LDL CHOLESTEROL CALCULATED 59 mg/dl
== END | disposition home or self-care (01) ==
LOC: C.LAB1850 12:09
PROVIDERS: ATTEND Internal Medicine Interventional Cardiology
DX: E78.5 Hyperlipidemia, unspecified (principal)

== ENCOUNTER → 2017-05-27 | Outpatient (CLI) | payer OTHER ==
[~2017-05-27] VITALS: Ht 188 cm; Wt 211.3 kg
[2017-05-27 16:08] VITALS: BP 124/74; PULSE 64; Ht 188 cm; Wt 211.3 kg
== END | disposition home or self-care (01) ==
LOC: C.NEUR 15:10
PROVIDERS: ATTEND Internal Medicine Pulmonary Disease
DX: G47.30 Sleep apnea, unspecified (principal); I25.10 Atherosclerotic heart disease of native coronary artery without angina pectoris; G47.00 Insomnia, unspecified; F90.2 Attention-deficit hyperactivity disorder, combined type; F41.9 Anxiety disorder, unspecified; E78.5 Hyperlipidemia, unspecified; E66.9 Obesity, unspecified; R73.03 Prediabetes; I25.2 Old myocardial infarction; Z95.5 Presence of coronary angioplasty implant and graft; Z82.49 Family history of ischemic heart disease and other diseases of the circulatory system; Z79.82 Long term (current) use of aspirin; Z79.899 Other long term (current) drug therapy; Z88.0 Allergy status to penicillin